=== PATIENT | male | born 1970 | race Caucasian/White ===

== ENCOUNTER 2016-12-13 12:34 | Emergency (ER) | payer BC ==
[2016-12-13 12:41] VITALS: BP 133/87
--- NOTE | 2016-12-13 14:51 | ED ---
Lower Extremity - HPI Summary HPI Summary: Pt here w/ Rt foot/ankle injury earlier today. Was walking and accidentally stepped on a shoe, inverting ankle triggering injury. Pain, swelling and bruising. Denies numbness, tingling, weakness. Took 400mg ibuprofen prior to arrival. Has been resting, icing and elevating and feels okay at the moment. Worse w/ moving toes and ankle and worse w/ bearing weight. Has what appears to be an abrasion over Rt lateral 5th MT - pt reports imms are UTD. - History of Current Complaint Chief Complaint: EDExtremityLower Stated Complaint: RIGHT FOOT INJURY, FALL Time Seen by Provider: 12/13/16 14:17 Hx Obtained From: Patient Pain Intensity: 8 - Allergies/Home Medications Allergies/Adverse Reactions: Allergies Allergy/AdvReac Type Severity Reaction Status Date / Time No Known Allergies Allergy Unverified 07/12/12 09:34 PMH/Surg Hx/FS Hx/Imm Hx Previously Healthy: Yes Endocrine/Hematology History: Denies: Hx Anticoagulant Therapy, Hx Blood Disorders, Hx Diabetes, Hx Thyroid Disease, Hx Unexplained Bleeding, Hx Coagulopothy Cardiovascular History: Denies: Hx Hypertension, Hx Pacemaker/ICD, Hx Peripheral Vascular Disease Respiratory History: Denies: Hx Asthma, Hx Chronic Obstructive Pulmonary Disease (COPD) GI History: Denies: Hx Ulcer Musculoskeletal History: Denies: Hx Arthritis, Hx Rheumatoid Arthritis, Hx Osteoporosis Sensory History: Denies: Hx Cataracts, Hx Contacts or Glasses, Hx Glaucoma, Hx Hearing Aid Opthamlomology History: Denies: Hx Cataracts, Hx Contacts or Glasses, Hx Glaucoma Neurological History: Denies: Hx Headaches, Hx Seizures, Hx Transient Ischemic Attacks (TIA) Psychiatric History: Denies: Hx Anxiety, Hx Depression, Hx Panic Disorder - Surgical History Surgery Procedure, Year, and Place: LEFT FOOT-TOES WITH PINNING 1988(PINS NOT IN NOW WERE REMOVED), RT FOREARM 1995, RIGHT CLAIVICLE WITH PINNING 1995, LEFT WRIST PINNING, [facility] Infectious Disease History: No Infectious Disease History: Denies: Hx Clostridium Difficile, Hx Hepatitis, Hx Human Immunodeficiency Virus (HIV), Traveled Outside the [place] in Last 30 Days - Family History Known Family History: Positive: None - Social History Occupation: Employed Full-time Lives: With Family Alcohol Use: Daily Hx Substance Use: No Substance Use Type: Reports: None Hx Tobacco Use: No Smoking Status (MU): Never Smoked Tobacco Review of Systems Positive: no symptoms reported Musculoskeletal: Other - see HPI Skin: Other - see HPI Neurological: Negative Psychological: Normal All Other Systems Reviewed And Are Negative: Yes Physical Exam Triage Information Reviewed: Yes Vital Signs On Initial Exam: Initial Vitals Temp Pulse Resp BP Pulse Ox 97 F 87 14 133/87 96 12/13/16 12:39 12/13/16 12:39 12/13/16 12:39 12/13/16 12:39 12/13/16 12:39 Vital Signs Reviewed: Yes Appearance: Positive: Well-Appearing, No Pain Distress, Well-Nourished Skin: Positive: Warm, Dry - edema and erythema over Rt lateral malleolus and 5th MT -superficial abrasion over 5th MT - no obvious open fracture upon exam Eyes: Positive: EOMI ENT: Positive: Hearing grossly normal Respiratory/Lung Sounds: Positive: Breath Sounds Present Cardiovascular: Positive: Pulses are Symmetrical in both Upper and Lower Extremities Musculoskeletal: Positive: Limited @ - can move toes but limited d/t pain; can move ankle but limited d/t pain Neurological: Positive: Normal, Sensory/Motor Intact Psychiatric: Positive: Normal - Precious Coma Scale Coma Scale Total: 15 Diagnostics - Vital Signs Vital Signs Temp Pulse Resp BP Pulse Ox 12/13/16 12:39 97 F 87 14 133/87 96 - Laboratory Lab Statement: Any lab studies that have been ordered have been reviewed, and results considered in the medical decision making process.
--- NOTE | 2016-12-13 15:23 | RAD ---
HISTORY: Inversion injury, right ankle and foot COMPARISONS: None VIEWS: 6, Frontal, lateral, and oblique views of the right ankle and of the right foot FINDINGS: BONE DENSITY: Normal. BONES: There is an oblique minimally displaced fracture of the diaphysis of the fifth metatarsal JOINTS: There is no arthropathy. ALIGNMENT: There is no dislocation. SOFT TISSUES: Unremarkable. OTHER FINDINGS: None. IMPRESSION: OBLIQUE MINIMALLY DISPLACED FRACTURE OF THE FIFTH METATARSAL
== END 2016-12-13 17:35 | disposition home or self-care (01) ==
LOC: ED 12:34
DX: S99.921A Unspecified injury of right foot, initial encounter (principal); W19.XXXA Unspecified fall, initial encounter; Y93.9 Activity, unspecified; Y92.9 Unspecified place or not applicable; Y99.9 Unspecified external cause status
CPT/HCPCS: 99282

== ENCOUNTER 2017-06-19 16:10 | Emergency (ER) | payer BC ==
[2017-06-19 16:20] VITALS: BP 126/96
== END 2017-06-19 17:07 | disposition left against medical advice (07) ==
LOC: ED 16:10
DX: J02.9 Acute pharyngitis, unspecified (principal); Z53.21 Procedure and treatment not carried out due to patient leaving prior to being seen by health care provider
CPT/HCPCS: 99281